=== PATIENT | male | born 1955 | race Caucasian/White ===

== ENCOUNTER → 2018-11-18 | Outpatient (CLI) | payer OTHER, MEDICARE ==
--- NOTE | 2018-11-18 17:08 | PCVCIMAG ---
APPROVED REPORT Study performed: 11/18/2018 15:45:05 Exam: Stress Echocardiogram Indication: Dyspnea , Hypertension, Diastolic Heart Failure, Patient Location: Echo lab Stress Nurse: Liliana Renteria RN Room #: 2 Status: routine Ht: 5 ft 10 in HR: 112 bpm BP: 122/76 mmHg Rhythm: Sinus Tachycardia Medical History Medical History: HTN, Diabetes, CITLALI, Cardiac Risk Factors: HTN, DM Pretest Chest Pain Characteristics: No chest pain Exercise History: Sedentary Procedure The patient underwent an Exercise Stress Test using the Yared Protocol. Blood pressure, heart rate, and EKG were monitored. An Echocardiogram was performed by emergency spill response technician in four stages in quad fashion. At peak stress, four selected images were obtained and placed side by side with resting images for comparison. Stress Test Details Stress Test: Exercise stress testing was performed using a Yared protocol. HR Resting HR: 112 bpmMax Heart Rate (APMHR): 155 bpm Max HR Achieved: 171 bpmTarget HR (85% APMHR): 131 bpm % of APMHR: 110 Recovery HR: 126 bpm HR response to stress: Normal HR response to stress BP Resting BP: 122/76 mmHg Max BP: 134/80 mmHg Recovery BP: 132/80 mmHg BP response to stress: Normal blood pressure response to stress. ECG Resting ECG: Sinus Tachycardia Stress ECG: Sinus Rhythm ST Change: Non-ischemic Maximum ST Deviation: 0 mm Arrhythmia: occasional PAC, Rare PVC Recovery ECG: Sinus Rhythm Recovery ST Change: Non-ischemic Recovery ST Deviation: 0 mm Recovery Arrhythmia: None Clinical Reason for Termination: Maximal effort Stress Symptoms: dyspnea,fatigue Exercise duration: 3 min 34 sec Highest Stage Achieved: Stage 2: 2.5 mph at 12% grade. Exercise capacity: 5.9 METs Overall Exercise Capacity for Age: Poor Scale: Sedentary Angina Score: None No complications. Stress ECG Conclusion The patient exercised according to the YARED protocol for 3:34 mins; achieving a work level of 5.9 METS. The resting heart rate of 112 bpm conchita to a maximum heart rate of 171 bpm. This value represent 110% of the maximal, age-predicted heart rate. The resting blood pressure of 122/76 mmHg, conchita to a maximum blood pressure of 134/80 mmHg. The exercise test was stopped due to dyspnea and fatigue . Beaver Treadmill Score is 3.0 which is Moderate risk. Pre-Stress Echo The resting Echocardiogram showed normal left ventricular contractility with an estimated Ejection Fraction of about 55-60%. Normal wall motion in all segments on baseline images. Post-Stress Echo The stress Echocardiogram showed normal left ventricular contractility with an estimated Ejection Fraction of about 65-70%. Normal augmentation of wall motion in all segments on post stress images. Clinical No clinical or ECG evidence for ischemia. Conclusion Clinical Response: Non-ischemic Exercise Capacity: Below Average Stress ECG Response: Non-ischemic Stress Echo Images: Non-ischemic No clinical, EKG or echocardiographic evidence for ischemia. No echocardiographic evidence for exercise induced ischemia. Normal stress echocardiogram with maximal exercise stress. <Conclusion> No clinical, EKG or echocardiographic evidence for ischemia. No echocardiographic evidence for exercise induced ischemia. Normal stress echocardiogram with maximal exercise stress.
== END | disposition home or self-care (01) ==
LOC: PCVCIMAG 15:33
PROVIDERS: ATTEND Internal Medicine
DX: E78.5 Hyperlipidemia, unspecified (principal); I77.9 Disorder of arteries and arterioles, unspecified; E11.9 Type 2 diabetes mellitus without complications; I11.0 Hypertensive heart disease with heart failure; I50.32 Chronic diastolic (congestive) heart failure; R06.09 Other forms of dyspnea; G47.33 Obstructive sleep apnea (adult) (pediatric)
CPT/HCPCS: 93325; 93351